=== PATIENT | male | born 1970 | race Caucasian/White ===

== ENCOUNTER 2020-10-28 22:45 | Emergency (ER) | payer OTHER ==
[~2020-10-28] VITALS: Ht 162.6 cm; Wt 59.0 kg
[2020-10-28 23:00] VITALS: BP 124/77
[2020-10-28] MEDS ORDERED: SILVER SULFADIAZINE 1% 50 GM JAR TP ONE (23:05)
--- NOTE | 2020-10-28 23:18 | NUR ---
Dr. Camarena examining patient.
[2020-10-28] MEDS ORDERED: KETOROLAC 60 MG/2 ML VIAL IM ONE (23:25)
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
[2020-10-28] MEDS ORDERED: IBUP-2213 PO (23:33)
[2020-10-28] MEDS ORDERED: ACET-8386 PO (23:33)
[2020-10-28 23:50] VITALS: BP 124/77
--- NOTE | 2020-10-28 23:50 | NUR ---
Patient discharged with v/s stable. Written and verbal after care instructions given and explained. Patient alert, oriented and verbalized understanding of instructions. Ambulatory with steady gait. All questions addressed prior to discharge. ID band removed. Patient advised to follow up with PMD. Rx of MOTRIN AND NORCO given. Patient educated on indication of medication including possible reaction and side effects. Opportunity to ask questions provided and answered.
== END 2020-10-28 23:50 | disposition home or self-care (01) ==
LOC: MED 22:45
DX: T23.101A Burn of first degree of right hand, unspecified site, initial encounter (principal); X15.8XXA Contact with other hot household appliances, initial encounter; Y93.89 Activity, other specified; Y92.89 Other specified places as the place of occurrence of the external cause; Y99.8 Other external cause status
CPT/HCPCS: 16000; 96372; 99283; J1885

== ENCOUNTER 2021-11-13 18:13 | Emergency (ER) | payer OTHER ==
[~2021-11-13] VITALS: Ht 154.9 cm; Wt 56.7 kg
[~2021-11-13 18:13] MED LIST: ACET-8386 PO; IBUP-2213 PO
[2021-11-13 18:45] VITALS: BP 112/76
--- NOTE | 2021-11-13 20:33 | NUR ---
CALLED RADIOLOGY AND THEY STATED THEY DO NO HAVE PATIENT.
--- NOTE | 2021-11-13 20:33 | NUR ---
PT CALLED FROM INSIDE LOBBY AND OUTSIDE, NO RESPONSE
[2021-11-13] MEDS ORDERED: BACI1PAC6 TP (21:26)
== END 2021-11-13 21:40 | disposition home or self-care (01) ==
LOC: MED 18:13
DX: S61.211A Laceration without foreign body of left index finger without damage to nail, initial encounter (principal); E11.9 Type 2 diabetes mellitus without complications; Z79.899 Other long term (current) drug therapy; W45.8XXA Other foreign body or object entering through skin, initial encounter; Y93.89 Activity, other specified; Y92.89 Other specified places as the place of occurrence of the external cause; Y99.8 Other external cause status
CPT/HCPCS: 73140; 90471; 90715; 99283